=== PATIENT | male | born 1980 | race Caucasian/White ===

== ENCOUNTER 2020-07-02 03:05 | Observation (INO) ==
[2020-07-02] MEDS ORDERED: EPINEPHrine 1 MG/ML VIAL IM ONE (03:17)
[2020-07-02 03:51] LABS: Basophils # 0.1 K/mcL (0.0-0.2); Basophils % 0.9 %; Eosinophils # 0.1 K/mcL (0.0-0.6); Eosinophils % 1.8 %; Immature Granulocytes % 0.4 % (0-4); Lymphocytes # 2.4 K/mcL (0.6-4.6); Lymphocytes % 32.1 %; Mean Corpuscular HGB Conc 32.7 g/dL (31.6-35.5); Mean Corpuscular Hemoglobin 29.9 pg (28.0-33.3); Mean Corpuscular Volume 91.6 fL (83.0-100.0); Mean Platelet Volume 9.3 fL (9.4-12.4); Monocytes # 0.5 K/mcL (0.0-1.3); Monocytes % 6.7 %; Neutrophils # 4.3 K/mcL (1.6-8.9); Platelet Count 250 K/mcL (140-400); Red Blood Count 5.35 M/mcL (4.19-5.50); Red Cell Distribution Width 12.2 % (11.5-14.5); Segmented Neutrophils % 58.1 %; White Blood Count 7.4 K/mcL (4.3-11.1)
[2020-07-02 04:10] LABS: BUN/Creatinine Ratio 17 (6-26); Blood Urea Nitrogen 19 mg/dL (6-20); Calcium 9.3 mg/dL (8.6-10.3); Carbon Dioxide 26 mEq/L (23-29); Chloride 104 mEq/L (98-107); Glucose 167 mg/dL (70-105); Osmolality,Calculated 290 (280-300); Potassium 4.2 mEq/L (3.5-5.1); Sodium 137 mEq/L (136-145); eGFR For African Americans > 60 (> 60); eGFR For Non-African Americans > 60 (> 60)
[2020-07-02 04:11] LABS: Troponin I < 0.03 ng/mL (< 0.04)
[2020-07-02] MEDS ORDERED: Naloxone 0.4 MG/ML INJ IVP PRN (07:24)
[2020-07-02] MEDS ORDERED: D5% in Water 1,000 ML IVC PRN (07:27)
[2020-07-02] MEDS ORDERED: *HR* Dextrose 50 % in Water (Vial) 50 ML VIAL IVP PRN (07:27)
[2020-07-02] MEDS ORDERED: Dextrose Gel 15 GM/37.5 ML TUBE PO PRN ×2 (07:27)
[2020-07-02] MEDS ORDERED: EPINEPHrine 1 MG/ML VIAL IM PRN (07:40)
[2020-07-02] MEDS: MethylPREDNISolone 40 MG/ML VIAL IVP SCH ×3 (08:16→16:26)
[2020-07-02] MEDS: Loratadine 10 MG TABLET PO SCH ×2 (08:16→21:55)
[2020-07-02] MEDS: Famotidine 20 MG/2 ML VIAL IVP SCH ×2 (08:16→17:55)
[2020-07-02] MEDS ORDERED: Ringers Solution, Lactated 1,000 ML IVC ONE (08:19)
[2020-07-02] MEDS: Insulin LISPRO 300 UNITS/3 ML VIAL SQ SCH ×3 (12:04→22:02)
[2020-07-02] MEDS ORDERED: Isovue-370 500 ML BOTTLE IVP ONE (12:47)
[2020-07-03] MEDS: Famotidine 20 MG/2 ML VIAL IVP SCH (05:49)
[2020-07-03] MEDS ORDERED: *HR* Enoxaparin 40 MG/0.4 ML SYRINGE SQ SCH (06:00)
[2020-07-03 06:48] VITALS: BP 104/67
[2020-07-03] MEDS: Loratadine 10 MG TABLET PO SCH (08:08)
[2020-07-03] MEDS: Insulin LISPRO 300 UNITS/3 ML VIAL SQ SCH ×2 (08:17→08:24)
[2020-07-03] MEDS: MethylPREDNISolone 40 MG/ML VIAL IVP SCH ×2 (08:18)
== END 2020-07-03 12:18 | disposition home or self-care (01) ==
LOC: EMEROOARM 03:05 → CDU 03:05 → SUATTDRO 07:11 → CDU 07:50 → 3BNU 16:53
PROVIDERS: ADMIT Student in an Organized Health Care Education/Training Program; ATTEND Internal Medicine